=== PATIENT | male | born 2005 | race African-American/Black ===

== ENCOUNTER 2025-01-31 10:51 | Emergency (ER) | payer OTHER ==
[~2025-01-31] VITALS: Ht 172.7 cm; Wt 77.0 kg
[2025-01-31 11:01] VITALS: BP 109/57; PULSE 62; RESP 18; TEMP 98.2; O2SAT 99
[2025-01-31] MEDS ORDERED: IBUPROFEN 600 MG TABLET ONE (12:56)
[2025-01-31] MEDS: IBUPROFEN 600 MG TABLET PO ONE (12:57)
== END 2025-01-31 13:35 | disposition home or self-care (01) ==
LOC: EMS 11:03
DX: S93.401A Sprain of unspecified ligament of right ankle, initial encounter (principal); X50.1XXA Overexertion from prolonged static or awkward postures, initial encounter; Y93.89 Activity, other specified; Y92.89 Other specified places as the place of occurrence of the external cause; Y99.8 Other external cause status
CPT/HCPCS: 99283